=== PATIENT | male | born 1965 | race Caucasian/White ===

== ENCOUNTER 2018-11-05 08:07 | Emergency (ER) | payer OTHER ==
[~2018-11-05] VITALS: Ht 157.5 cm; Wt 65.6 kg
[~2018-11-05 08:07] MED LIST: DICL100G37 TOP; NAPR-985 PO
[2018-11-05 08:10] VITALS: BP 119/70; PULSE 65; RESP 20; Ht 157.5 cm; Wt 65.6 kg
[2018-11-05] MEDS ORDERED: IBUPROFEN 800 MG TAB PO ONE (09:00)
--- NOTE | 2018-11-05 10:07 | ERD ---
ER Documentation Chief Complaint Chief Complaint left knee pain/injury HPI Old male presenting with left knee pain. Patient has had progressive knee pain and went to the park and went jogging yesterday. He states his pain got worse and he feels like his kneecap slipped out of place. He is able to move however elicit pain. He denies any medical problems. NKDA. Surgical history denies. Social history smokes 3 cigarettes a day. His pain is worse with bending. ROS All systems reviewed and are negative except as per history of present illness. Medications Home Meds Active Scripts Diclofenac Sodium* (Voltaren* Gel) 1% -100 Gm Gel, 2 GM TOP QID, #1 TUB Prov:SARAH LANG PA-C 11/05/18 Naproxen* (Naprosyn*) 500 Mg Tablet, 500 MG PO BID PRN for PAIN AND/OR INFLAMMATION, #30 TAB Prov:SARAH LANG PA-C 11/05/18 Allergies Allergies: Coded Allergies: No Known Allergy (Unverified , 11/05/18) PMhx/Soc Medical and Surgical Hx: pt denies Medical Hx, pt denies Surgical Hx Hx Alcohol Use: No Hx Substance Use: No Hx Tobacco Use: Yes Smoking Status: Current every day smoker FmHx Family History: No diabetes, No coronary disease, No other Physical Exam Vitals Vital Signs Date Temp Pulse Resp B/P (MAP) Pulse Ox O2 O2 Flow FiO2 Time Delivery Rate 11/05/18 97.4 65 20 119/70 98 08:10 (86) Physical Exam GENERAL: The patient is well-appearing, well-nourished, in no acute distress CHEST: Clear to auscultation bilaterally. There are no rales, wheezes or rhonchi. HEART: Regular rate and rhythm. No murmurs, clicks, rubs or gallops. EXTREMITIES: Equal pulses bilaterally. There is no peripheral clubbing, cyanosis or edema. No focal swelling or erythema. Full range of motion. Grossly neurovascularly intact. NEUROLOGIC: Alert and oriented. Cranial nerves II through XII intact. Motor strength in all 4 extremities with 5 out of 5 strength. Sensation grossly intact. Normal speech and gait. SKIN: There is no apparent rash or petechiae. The skin is warm and dry. Results 24 hrs Current Medications Medications Dose Sig/Varun Start Time Status Last (Trade) Ordered Route PRN Stop Time Admin Dose Reason Admin Ibuprofen 800 mg ONCE ONCE 11/05/18 DC 11/05/18 (Motrin) PO 09:00 08:58 11/05/18 09:01 Procedures/MDM DIAGNOSTIC IMAGING REPORT Patient: JESSY ESPINAL : 1965 Age: 53 Sex: M MR #: [id number] DOS: 11/05/18 0854 Ordering MD: YANELIS LANG PA-C Location: [facility] Room/Bed: PROCEDURE: XR left Knee. CLINICAL INDICATION: Left knee pain TECHNIQUE: 3 views of the left knee were obtained. COMPARISON: None. FINDINGS: The osseous structures are intact without acute fracture seen. The joint space is maintained without significant hypertrophic changes. Alignment is maintained. No definite joint effusion is seen on the lateral view. No radiopaque foreign body. IMPRESSION: No acute osseous abnormality or significant degenerative change is seen. ER Course: Knee immobilizer given in ED. Neuro intact pre-and post immobilizer application. MDM: 53-year-old male presenting with knee pain. I have low suspicion for acute fracture dislocation. I have low suspicion for tendon or ligament rupture however patient may have strained or potential ligament injury. Patient has normal range of motion. Patient is given supportive medications as well as immobilizer and recommended to follow-up with orthopedics for further imaging and probable MRI. Denies other medical problems. NKDA. Surgical history denies. Social history denies Departure Diagnosis: Primary Impression: Knee pain Condition: Stable Patient Instructions: Knee Pain, Uncertain Cause Referrals: JORGITO VILLARREAL MD [facility] Hours: Mon-Sat 9:00 AM - 5:00 PM Additional Instructions: FOLLOW UP WITH YOUR PRIMARY CARE PHYSICIAN TOMORROW.Return to this facility if you are not improving as expected. SARAH LANG PA-C Nov 05, 2018 10:07
== END 2018-11-05 10:07 | disposition home or self-care (01) ==
LOC: FTE 08:07
DX: M25.562 Pain in left knee (principal); F17.210 Nicotine dependence, cigarettes, uncomplicated
CPT/HCPCS: 73562